=== PATIENT | female | born 1930 | race Caucasian/White ===

== ENCOUNTER 2017-09-05 14:06 | Inpatient (IN) | payer MEDICARE, OTHER ==
[~2017-09-05] VITALS: Ht 160 cm; Wt 60.0 kg
[~2017-09-05 14:06] MED LIST: ADVAIR 100-501 EACH INH; ALIGN4 MG PO; ALLOPURINOL100 MG PO; AMBIEN5 MG PO; AMLODIPINE BESY10 MG PO; AMLODIPINE BESYL5 MG PO; ANTI-DIARRHEA2 MG PO; ASPIRIN81 MG; ATORVASTATIN CA10 MG PO; ATORVASTATIN CA20 MG PO; COLESTIPOL HCL1 G1 PO; COLESTIPOL HCL1 GM PO; CYMBALTA30 MG PO; D3 DOTS2000 UNIT PO; DICYCLOMINE HCL10 MG PO; DIOVAN160 MG PO; DOCUSATE SODIU100 M1 PO; FEXOFENADINE H180 MG PO; FUROSEMIDE40 MG PO; HYDRALAZINE HCL50 MG PO; IPRATROPIUM BRO15 ML INH; IRON159 MG PO; LIPITOR20 MG; LISINOPRIL10 MG PO; LISINOPRIL40 MG PO; LYRICA25 MG PO; METOLAZONE2.5 MG PO; METOPROLOL TART50 MG PO; PHENYTOIN100 MG/4 M PO; SODIUM BICARBONATE PO; TAMSULOSIN HCL0.4 MG PO; TRIAMCINOLONE A15 G3 TOP; ULTRAM50 MG PO; VOLTAREN100 GM TOP; ZYRTEC10 MG PO
--- OUTSIDE RECORDS SUMMARY | 2017-09-05 14:10 | XMS REPORT ---
[facility] Address Unknown Phone Unavailable Care Team Providers Care Occupational Health Nurse Manager Name Role Phone OMID SINHA Unavailable Unavailable Problems This patient has no known problems. Allergies, Adverse Reactions, Alerts This patient has no known allergies or adverse reactions. Medications This patient has no known medications. Results Test Description Test Time Test Comments Text Results Atomic Results Result Comments BONE DXA DUAL ENERGY [place] [address] Patient Name: DEMAR CUEVAS MR #: [id number] : 1930 Age/Sex: 86/F Req #: [id number] [facility] Physician: Ordered by: OMID SINHA MD Report #: [id number] [facility]: Procedure: [id number] DX/BONE DXA DUAL ENERGY Exam Date: Exam Time: REPORT STATUS: Signed EXAM: DXA BONE DENSITY INDICATIONS: Disorder of bone unspecified COMPARISON: None. FINDINGS: Left femoral neck bone mineral density (BMD) (g/cm2): 0.610 Femur T- score (standard deviation relative to young adult mean BMD): -2.2 Femur Z -score (standard deviation relative to age-matched control group): 0.4 Lumbar bone mineral density (BMD) (g/cm2): 1.454 Lumbar T-score ( standard deviation relative to young adult mean BMD): 3.7 Lumbar Z-score (standard deviation relative to age-matched control group): 6.6 CONCLUSION: 1. WHO bone mineral classification: Low bone mass (osteopenia). 2. Major ten-year osteoporotic fracture risk is 22%, with a hip fracture risk is 6.8%. World Health Organization Classification: *The Z- score is provided for informational purposes. The T-score is preferable for clinical decisions. SUGGESTED RECOMMENDATIONS: Normal T Osteopenia: Calcium supplementation, daily multiple vitamins, and adequate exercise as preventive measures against osteoporosis. Osteoporosis T Severe Osteoporosis: In addition to the above, pharmacologic therapy. Dictated by: Lizz De La Cruz M.D. on 02/01/2017 at 8:06 Electronically approved by: Lizz De La Cruz M.D. on 02/01/2017 at 8:06 Dictated By: LIZZ DE LA CRUZ MD 5 Transcribed By: ALEXIA on 02/01/17 08 COPY TO: OMID SINHA MD MAMMOGRAPHY DIGITAL SCR BILAT [place] [address] Patient Name: DEMAR CUEVAS MR #: [id number] : 1930 Age/Sex: 86/F Req #: [id number] [facility] Physician: Ordered by: OMID SINHA MD Report #: [id number] Location: MAMMO Room/Bed: Procedure: [id number] MG/MAMMOGRAPHY DIGITAL SCR BILAT Exam Date: 01/31/17 Exam Time: 1450 REPORT STATUS: Signed # [id number] - [id number] #BILATERAL DIGITAL SCREENING MAMMOGRAM WITH CAD: 01/31 CLINICAL: Routine screening. Comparison is made to exam dated: mammogram - [facility]. Current study contains 4 films. The tissue of both breasts is predominantly fatty. Current study was also evaluated with a Computer Aided Detection (CAD) system. There are benign vascular calcifications and calcifications in both breasts. No significant masses, calcifications, or other findings are seen in either breast. There has been no significant interval change. IMPRESSION: BENIGN There is no mammographic evidence of malignancy. A 1 year screening mammogram is recommended. The patient will be notified by letter of the results. Sheeba mckeon/blossom:02/11/2017 10:58: 06 Tennis [employer] Manager: María LOMELI(R)(M), [facility] letter sent: Compared to Prior B9 Mammogram BI-RADS: 2 Benign Dictated By: SHEEBA BROOKS DO 1058 Transcribed By: BLOSSOM on 02/11/17 1058 COPY TO: OMID SINHA MD
--- OUTSIDE RECORDS SUMMARY | 2017-09-05 14:10 | XMS REPORT | Clinical Summary ---
Author Author [facility] Address Unknown Phone Unavailable Care Team Providers Care Clinical Safety Specialist Name Role Phone PCP Unavailable Allergies Not on File Current Medications Not on file Active Problems Not on file Social History Tobacco Use Types Packs/Day Years Used Date Never Assessed Sex Assigned at Date Recorded Not on file Last Filed Vital Signs Not on file Plan of Treatment Health Maintenance Due Date Last Done Comments ZOSTER VACCINE 1992 PNEUMOCOCCAL 1997 POLYSACCHARIDE VACCINE AGE 65 AND OVER PNEUMOCOCCAL-13 1997 INFLUENZA VACCINE 01/11/2017 Results Not on fileafter 09/04/2016 Insurance Payer Benefit Subscriber ID Type Phone Address Plan / Group MEDICARE MEDICARE xxxxxxxxxx Medicare [place], [place] PART A AND B [facility] xxxxxxxxx HMO/PPO THCARE CHOICE/CHO ICE +
[2017-09-05] MEDS ORDERED: ACETAMINOPHEN 325 MG TAB PO STA (15:18)
[2017-09-05 16:09] LABS: BASOPHILS # (AUTO) 0.1 (0.0-0.1); BASOPHILS % 0.7 % (0.0-1.0); EOSINOPHILS # (AUTO) 0.1 (0.0-0.4); EOSINOPHILS % 0.9 % (0.0-6.0); HEMATOCRIT 26.8 % (34.2-44.1); HEMOGLOBIN 8.9 g/dL (12.0-16.0); LYMPHOCYTES # (AUTO) 1.4 (1.0-3.2); LYMPHOCYTES % 19.7 % (18.0-39.1); MEAN CORPUSCULAR HEMOGLOBIN 34.6 pg (28-32); MEAN CORPUSCULAR HGB CONC 33.2 g/dL (31-35); MEAN CORPUSCULAR VOLUME 104.3 fL (81-99); MONOCYTES # (AUTO) 0.7 (0.2-0.8); MONOCYTES % 9.3 % (4.4-11.3); NEUTROPHILS # (AUTO) 4.9 (2.1-6.9); NEUTROPHILS % 69.3 % (38.7-80.0); PLATELET COUNT 144 x10e3/uL (140-360); RED BLOOD COUNT 2.57 x10e6/uL (3.6-5.1); RED CELL DISTRIBUTION WIDTH 15.5 % (11.7-14.4)
[2017-09-05 16:19] LABS: ALBUMIN 3.5 g/dL (3.5-5.0); ANION GAP 19.8 mmol/L (8-16); CALCIUM 9.3 mg/dL (8.4-10.2); CREATININE, SERUM 8.82 mg/dL (0.57-1.11); POTASSIUM 4.8 mmol/L (3.5-5.1)
[2017-09-05 16:29] LABS: MAGNESIUM 2.1 MG/DL (1.3-2.1); PHOSPHORUS 4.6 MG/DL (2.3-4.7)
[2017-09-05 16:51] LABS: THYROID STIMULATING HORMONE 1.231 uIU/mL (0.350-4.940)
--- NOTE | 2017-09-05 17:04 | Diagnostic Imaging Report ---
PROCEDURE: Frontal and lateral views of the chest. COMPARISON: None. INDICATIONS: WEAKNESS, LETHARGIC FINDINGS: Lines/tubes: Left arm vascular stent. Multiple surgical clips in the left arm. Median sternotomy wires and mediastinal clips. Lungs: The lungs are well inflated. Bilateral peribronchial cuffing. On lateral x-ray there is a soft tissue mass in the hilar/mediastinum. On frontal view, there is a right hilar fullness. There is however a overlying linear artifact. Questionable focal airspace opacity at left lung base. Pleura: There is no pleural effusion or pneumothorax. Heart and mediastinum: The heart and the mediastinum are normal. Bones: No acute bony abnormality. IMPRESSION: 1. Questionable right hilar mass. Recommend CT with contrast. 2. Bilateral peribronchial cuffing. This can be seen viral etiology or reactive airway. 3. Questionable asymmetric focal airspace opacity in the left lung base best seen on frontal view appears worsened for pneumonia. Dictated by: Boyd Paula M.D. on 09/05/2017 at 17:03 Electronically approved by: Boyd Paula M.D. on 09/05/2017 at 17:03
[2017-09-05] MEDS ORDERED: SODIUM CHLORIDE 0.9% 500ML 500 ML IV ONE (18:15)
[2017-09-05 18:47] LABS: BILIRUBIN,URINE 1+ (NEGATIVE); CLARITY,URINE CLEAR (CLEAR); COLOR,URINE YELLOW (YELLOW); KETONES,URINE NEGATIVE (NEGATIVE); LEUKOCYTE ESTERASE ,URINE NEGATIVE (NEGATIVE); NITRITE,URINE NEGATIVE (NEGATIVE); URINE UROBILINOGEN 0.2 mg/dL (0.2 - 1)
[2017-09-05 18:48] LABS: PROTEIN,URINE DIPSTICK 2+ (NEGATIVE)
[2017-09-05] MEDS ORDERED: SODIUM CHLORIDE 0.9% 1000ML 1,000 ML IV SCH (18:51)
[2017-09-05] MEDS ORDERED: ONDANSETRON HCL INJ 2 MG/ML VIAL IV PRN (19:00)
[2017-09-05] MEDS ORDERED: IOPAMIDOL 370 MG/ML 200 ML INFUS..BTL INJ ONE (20:29)
[2017-09-05] MEDS ORDERED: SODIUM CHLORIDE 0.9% 50ML 50 ML ONE (20:29)
--- NOTE | 2017-09-05 20:36 | Diagnostic Imaging Report ---
EXAM: CT Chest WITH contrast 09/05/2017 6:14 PM INDICATION: Mediastinal mass on chest x-ray COMPARISON: Same-day chest radiograph TECHNIQUE: Chest was scanned utilizing a multidetector helical scanner from the lung apex through the level of the adrenal glands after the uneventful administration of IV contrast. Coronal and sagittal reformations were obtained. Routine protocol was performed. IV CONTRAST: 100 mL of Omnipaque 370 RADIATION DOSE: Total DLP: 476.58 mGy*cm Estimated effective dose: (DLP x 0.014 x size factor) mSv COMPLICATIONS: None FINDINGS: LINES/ TUBES: None. LUNGS AND AIRWAYS: There is a 3.1 x 3.6 cm right upper lobe opacity in the right pulmonary hilum (series 3, image 53) with surrounding groundglass opacity, suggesting pulmonary hemorrhage. This lesion partially encases the right ascending pulmonary vein and right middle lobe pulmonary artery. Subsegmental atelectasis in the lung bases. PLEURA: The pleural spaces are clear. HEART AND MEDIASTINUM:There are enlarged paratracheal, subcarinal, and right hilar lymph nodes. For example, an upper paratracheal lymph node (series 2, image 34) measures 1.3 cm. A subcarinal lymph node (image 52) measures 1.3 cm. The heart is moderately enlarged. No pericardial effusion. The main pulmonary artery is enlarged, measuring 3.3 cm in caliber. The visualized thyroid gland is normal. UPPER ABDOMEN: Limited evaluation of the upper abdomen. There are small hypodensities in the kidneys which are too small to characterize. There has been a cholecystectomy. Small hiatal hernia. BONES: Diffusely sclerotic appearance of the bones with scattered lucencies in thoracic spine. These are indeterminate SOFT TISSUES: Unremarkable. IMPRESSION: 1. 3.6 cm opacity in the right lung hilum with surrounding hemorrhage or edema. This could represent lung cancer or pneumonia. 2. Consider follow-up imaging after treatment to assess for resolution. Alternatively, lung biopsy could be pursued. 3. Mediastinal lymphadenopathy. 4. Diffusely sclerotic bones with multiple small lucent lesions. This is indeterminate. Consider bone scan for further evaluation. Signed by: Dr. Toribio Lau M.D. on 09/05/2017 8:32 PM
--- OUTSIDE RECORDS SUMMARY | 2017-09-05 23:47 | XMS REPORT | Clinical Summary ---
Author Author [facility] Address Unknown Phone Unavailable Care Team Providers Care Hot Box Spotter Name Role Phone PCP Unavailable Allergies Not [...] Medicare [place], [place] PART A AND B [facility] xxxxxxxxx HMO/PPO THCARE CHOICE/CHO ICE +
[2017-09-06] VITALS (9 sets, daily range): BP systolic 123–179; BP diastolic 45–77
[2017-09-06 07:22] LABS: BASOPHILS % 0.8 % (0.0-1.0); EOSINOPHILS # (AUTO) 0.1 (0.0-0.4); HEMATOCRIT 27.2 % (34.2-44.1); HEMOGLOBIN 8.7 g/dL (12.0-16.0); LYMPHOCYTES # (AUTO) 1.1 (1.0-3.2); LYMPHOCYTES % 21.9 % (18.0-39.1); MEAN CORPUSCULAR HEMOGLOBIN 34.1 pg (28-32); MEAN CORPUSCULAR VOLUME 106.7 fL (81-99); MONOCYTES # (AUTO) 0.6 (0.2-0.8); MONOCYTES % 11.9 % (4.4-11.3); NEUTROPHILS # (AUTO) 3.2 (2.1-6.9); NEUTROPHILS % 62.8 % (38.7-80.0); PLATELET COUNT 127 x10e3/uL (140-360); RED BLOOD COUNT 2.55 x10e6/uL (3.6-5.1); RED CELL DISTRIBUTION WIDTH 15.3 % (11.7-14.4)
[2017-09-06] MEDS ORDERED: GABAPENTIN300 MG PO (07:38)
[2017-09-06] MEDS ORDERED: QUESTRAN PACKET4 GM PO (07:38)
[2017-09-06] MEDS ORDERED: LORATADINE10 MG PO (07:38)
[2017-09-06 07:48] LABS: ALBUMIN 3.1 g/dL (3.5-5.0); ALBUMIN/GLOBULIN RATIO 1.1 (0.8-2.0); ALKALINE PHOSPHATASE 71 IU/L (40-150); ANION GAP 18.1 mmol/L (8-16); BLOOD UREA NITROGEN 77 mg/dL (7-26); BUN/CREATININE RATIO 8 (6-25); CARBON DIOXIDE 22 mmol/L (22-29); CHLORIDE 100 mmol/L (98-107); EST GLOMERULAR FILTRATION RATE 4 ML/MIN (60-); GLUCOSE 102 mg/dL (74-118); PHOSPHORUS 6.3 MG/DL (2.3-4.7); POTASSIUM 4.1 mmol/L (3.5-5.1); SODIUM 136 mmol/L (136-145)
[2017-09-06 07:49] LABS: ALANINE AMINOTRANSFERASE < 6 IU/L (0-55)
--- NOTE | 2017-09-06 11:04 | Consultation ---
DATE OF CONSULTATION: September 06, 2017 Ms. Enriqueta Valdivia is known to me. An 87-year-old female dialyzes at [facility] dialysis facility on Tuesday, and Tuesday schedule. Was found to have an abnormal chest x-ray with a right hilar mass. CT scan done which was highly suspicious for lung cancer. She is scheduled for dialysis today. Awake, alert and sitting up in no apparent distress. ALLERGIES: NO APPARENT DRUG ALLERGIES. SOCIAL HISTORY: Patient does not smoke or drink. PAST MEDICAL HISTORY: History of hypertension, history of anemia of chronic kidney disease, history of seizure disorder, history of hyperlipidemia, vitamin D deficiency, secondary hyperparathyroidism, anemia of chronic kidney disease. LABS: Show white count of 5, hemoglobin 8.7 with a potassium 4.1, creatinine 9.5, phosphorus 6.3. TSH 1.2. CURRENT MEDICATIONS: Please see MAR for details. Shows Tylenol p.r.n. ,normal saline at 75 mL an hour. I am going to stop that. Ondansetron p.r.n. and Tylenol p.r.n. PHYSICAL EXAMINATION GENERAL: Awake, alert and laying supine in no apparent distress. VITALS: Blood pressure of 123/67, pulse rate 64, afebrile, oxygen saturation 99% on nasal cannula at 2 L. HEAD AND NECK: Corneae clear. Oral mucosa dry. LUNGS: Right-sided rales. Left relatively clear. Occasional expiratory rhonchi. HEART: S1 and S2 audible. No rubs or gallops. ABDOMEN: Soft and nontender. LOWER EXTREMITIES: Shows no edema. LABORATORY TESTS: As mentioned. IMPRESSION: End-stage renal disease. PLAN: Hemodialysis. Strongly recommend oncology input given the suspicion of lung cancer. I will discuss with Dr. Medina. Blood pressure is stable. Volume status stable. Anemia of chronic kidney disease. Please see orders. Job#: [id number] RI
[2017-09-06] MEDS ORDERED: LORATADINE 10 MG TAB PO PRN (12:30)
[2017-09-06] MEDS ORDERED: TRIAMCINOLONE 0.1% OINTMENT 15 GM TUBE TOP PRN (12:30)
[2017-09-06] MEDS ORDERED: IPRATROPIUM BROMIDE 0.06% 42 MCG NASPR NS PRN (12:30)
[2017-09-06] MEDS ORDERED: SODIUM CHLORIDE 0.9% 1000ML 2,000 ML IV PRN (13:30)
[2017-09-06] MEDS: PIPERACILLIN/TAZO 2.25 GM 50 ML IV SCH ×2 (14:00→21:12)
--- NOTE | 2017-09-06 15:22 | Diagnostic Imaging Report ---
Exam: Head CT without contrast History: Syncope Comparison studies: Head CTs of 11/17/2016 and 10/08/2009. Brain MRI 07/08/2015. Technique: Axial images were obtained from the skull base to the vertex. Coronal and sagittal images reconstructed from the axial data. Intravenous contrast: None Findings: Scalp: No abnormalities. Bones: No fractures, blastic or lytic lesions. Brain sulci: Mildly prominent but age appropriate. Ventricles: Normal in size. No hydrocephalus. Extra-axial spaces: No masses, no fluid collection. Parenchyma: Unchanged incidental small cavernous malformation at the pontomedullary junction. No other mass, acute hemorrhage or acute cortical vascular insults. Ill-defined scattered and mildly confluent-periventricular hypodensities in the supratentorial white matter are nonspecific but most compatible with chronic small vessel ischemic changes. Sellar/suprasellar region: No abnormalities. Craniocervical junction: Patent foramen magnum. No Chiari one malformation. Incidental findings: Retained contrast within the vasculature from recent chest CT with IV contrast of 09/05/2017. Mild degenerative changes at the bilateral temporomandibular joints. Atherosclerotic calcifications in the carotid siphons and intradural vertebral arteries. IMPRESSION: 1. No acute intracranial abnormalities. 2. Retained contrast within the vasculature from recent chest CT with IV contrast on 09/05/2017. 3. No other changes from the previous head CT of 11/17/2016. 4. Mild to moderate chronic microvascular ischemic changes. 5. Unchanged small pontomedullary cavernous malformation. Signed by: Dr. Wale Uribe M.D. on 09/06/2017 3:18 PM
[2017-09-06] MEDS ORDERED: SODIUM BICARBONATE 650 MG PO SCH (17:00)
--- NOTE | 2017-09-06 17:24 | Consultation ---
DATE OF CONSULTATION: September 06, 2017 PULMONARY CONSULTATION This is a patient of Dr. Medina and Dr. Souza. This is a charming, but unfortunate, 85-year-old woman with a history of early dementia, history of seizure disorder, history of epilepsy, history of hypertension, end-stage renal disease on dialysis for approximately 2 years. She is somewhat forgetful. History is largely relayed by her daughter and family. She was weak and unable to walk. According to the daughter, she felt cold and has had shaking chills after dialysis. She has also recently been treated for bronchitis and cough. Born in [place], [place], and worked in an office. Nonsmoker. No alcohol use. She has had coronary bypass surgery, hysterectomy, gallbladder surgery, foot surgery, graft surgery. Family history is positive for bone cancer. PHYSICAL EXAMINATION GENERAL: Frail, white female looking her stated age, in no acute distress. VITALS: Temperature now 98. Temperature on admission 101.8. Blood pressure 142/71. CHEST: Auscultation revealed clear lung weaver. HEART: Regular rhythm. ABDOMEN: Nontender. EXTREMITIES: Not edematous. Recent AV graft. Possibility of lung cancer was discussed with adenopathy versus pneumonia. The patient is agreeable to continue antibiotic therapy. They will consider biopsy but likely wish to delay until follow up CAT scan in approximately 6 weeks' time. Will check CEA level. Will review the films with radiology. Thank you for this kind referral. Job#: [id number]
[2017-09-06] MEDS: DICYCLOMINE HCL 10 MG CAP PO SCH ×2 (18:02→21:12)
[2017-09-06] MEDS: GABAPENTIN 300 MG CAP PO SCH (18:02)
[2017-09-06] MEDS: DOXYCYCLINE HYCLATE TABLET 100 MG TAB PO SCH (18:02)
[2017-09-06] MEDS: CHOLESTYRAMINE 4 GM PACKET PO SCH (18:03)
[2017-09-06] MEDS: SODIUM BICARBONATE 650 MG TAB PO SCH (18:03)
--- NOTE | 2017-09-06 19:01 | History and Physical ---
HISTORY OF PRESENT ILLNESS: An 87-year-old female with past medical history positive for end-stage renal disease on dialysis, hypertension. Patient came here because apparently she had syncopal episode at home and the family found her on the floor, very confused. Patient was admitted to the hospital. She was found to have a mass on the right lung which is either a tumor or pneumonia. She has been started empirically on IV antibiotic here. BUN and creatinine looked worse when she came here. REVIEW OF SYSTEMS: CARDIOVASCULAR: No chest pain, no palpitation. RESPIRATORY: No shortness of breath. She does complain of some cough with yellowish sputum. GASTROINTESTINAL: No nausea, no vomiting, no diarrhea. GENITOURINARY: No frequency, no dysuria. SOCIAL HISTORY: She does not smoke. She does not drink. PAST MEDICAL HISTORY: Positive for end-stage renal disease on dialysis and hypertension. PHYSICAL EXAMINATION: VITAL SIGNS: Blood pressure 123/67, temperature 97.1, heart rate 64 per minute, respiratory rate is 18 per minute. Oxygen saturation 99%. LAB: On the BMP: Sodium 136, potassium 4.1, chloride 100, CO2 22, BUN 77, creatinine 9.50. Glucose 102. On the CBC: White blood count 5.03, hemoglobin 8.7, hematocrit 27.2, platelet count 127,000. AST 13, ALT 6, total bilirubin 0.7, alkaline phosphatase 71. The CT of the chest showed a mass on the right hilar lung area and also some spots on the bones. FINAL IMPRESSION: 1. Syncopal episode. 2. Lobar pneumonia versus lung mass. 3. End-stage disease on dialysis. 4. Chronic anemia secondary to end-stage renal disease. 5. Hypertensive nephropathy. 6. Encephalopathy which seems to be metabolic, which is completely resolved. PLAN OF TREATMENT: We are going to continue Zosyn 2.25 grams IV piggyback q.6 hours. Resume the rest of the home medications. We are going to get a pulmonary consult with Dr. Nielsen and also an oncology consult with Dr. Whitmore, Dr. Souza, fish checker who is seeing her from the nephrology point of view since the patient also is on dialysis on Tuesdays, and Saturdays. We are going to also order a CT of the head. Physical therapy has been ordered. We are going to do a BMP tomorrow. Job#: [id number] EV
[2017-09-06] MEDS: SALMETEROL/FLUTICASONE 100/50 INH SCH (19:55)
[2017-09-07] VITALS (7 sets, daily range): BP systolic 124–159; BP diastolic 62–78
[2017-09-07] MEDS: PIPERACILLIN/TAZO 2.25 GM 50 ML IV SCH ×3 (05:57→21:02)
[2017-09-07 07:41] LABS: ANION GAP 14.7 mmol/L (8-16); CALCIUM 8.6 mg/dL (8.4-10.2); CREATININE, SERUM 5.74 mg/dL (0.57-1.11); POTASSIUM 3.7 mmol/L (3.5-5.1)
[2017-09-07] MEDS: SALMETEROL/FLUTICASONE 100/50 INH SCH ×2 (09:00→19:05)
[2017-09-07] MEDS: CHOLESTYRAMINE 4 GM PACKET PO SCH ×2 (09:44→16:43)
[2017-09-07] MEDS: ASPIRIN 81 MG CHEW TAB PO SCH (09:44)
[2017-09-07] MEDS: COLESTIPOL HCL 1 G TAB PO SCH (09:44)
[2017-09-07] MEDS: DOXYCYCLINE HYCLATE TABLET 100 MG TAB PO SCH (09:44)
[2017-09-07] MEDS: DICYCLOMINE HCL 10 MG CAP PO SCH ×3 (09:44→21:02)
[2017-09-07] MEDS: AMLODIPINE BESYLATE 10 MG TAB PO SCH (09:44)
[2017-09-07] MEDS: SODIUM BICARBONATE 650 MG TAB PO SCH ×2 (09:44→16:43)
[2017-09-07] MEDS: GABAPENTIN 300 MG CAP PO SCH ×2 (09:44→16:43)
[2017-09-07] MEDS: ALLOPURINOL 100 MG TAB PO SCH (09:45)
[2017-09-07 12:18] LABS: FERRITIN 1997.95 ng/mL (4.63-204.00)
--- NOTE | 2017-09-07 19:27 | Diagnostic Imaging Report ---
Bone Scan, delayed phase INDICATION: 87 F with ESRD has a 3.6 cm right lung opacity, mediastinal adenopathy and diffusely sclerotic bones with multiple small lucent lesions on CT scan 09/05/2017. No current or historical diagnosis of cancer. COMPARISON: Chest CT 09/05/2017 REPORT: Approximately 3 hours following intravenous administration of 27.2 mCi of Tc-99m MDP,4-hour delayed total body images in the anterior and posterior projections and selected spot images were obtained. Scoliosis in the lumbar spine is noted. Diffusely increased tracer is seen in the mid thoracic spine without discrete focal abnormality, consistent with degenerative change. Small focus of mildly increased tracer is seen in the right side of L3, also consistent with degenerative changes. Otherwise, distribution of tracer activity is unremarkable throughout the skeletal system. No abnormal accumulation of tracer is seen in the soft tissues or urinary tract. The kidneys are barely visible and are small consistent with patient's known ESRD. IMPRESSION: No scan evidence of metabolic or metastatic bone disease. Signed by: Dr. María Cuevas M.D. on 09/07/2017 7:23 PM
[2017-09-08] VITALS (8 sets, daily range): BP systolic 107–159; BP diastolic 50–67
[2017-09-08] MEDS: PIPERACILLIN/TAZO 2.25 GM 50 ML IV SCH ×3 (05:43→22:16)
[2017-09-08] MEDS: ACETAMINOPHEN 325 MG TAB PO PRN ×2 (05:59→10:10)
[2017-09-08] MEDS: SALMETEROL/FLUTICASONE 100/50 INH SCH ×2 (08:36→20:35)
[2017-09-08] MEDS: CHOLESTYRAMINE 4 GM PACKET PO SCH ×2 (08:49→16:17)
[2017-09-08] MEDS: DICYCLOMINE HCL 10 MG CAP PO SCH ×3 (08:49→22:16)
[2017-09-08] MEDS: DOXYCYCLINE HYCLATE TABLET 100 MG TAB PO SCH (08:49)
[2017-09-08] MEDS: ALLOPURINOL 100 MG TAB PO SCH (08:49)
[2017-09-08] MEDS: GABAPENTIN 300 MG CAP PO SCH ×2 (08:49→16:17)
[2017-09-08] MEDS: COLESTIPOL HCL 1 G TAB PO SCH (08:49)
[2017-09-08] MEDS: SODIUM BICARBONATE 650 MG TAB PO SCH ×2 (08:49→16:17)
[2017-09-08] MEDS ORDERED: SODIUM CHLORIDE 0.9% 1000ML 2,000 ML IV PRN (10:00)
--- NOTE | 2017-09-08 15:09 | Consultation ---
DATE OF CONSULTATION: September 06, 2017, at 12:40 p.m. NEUROLOGICAL CONSULTATION REASON FOR CONSULTATION: Syncopal spell. This is an 87-year-old female with multiple medical problems including end-stage renal failure on dialysis, hypertension, history of seizure, anemia, hyperlipidemia, and vitamin D deficiency. Yesterday, as per dialysis, she was found on the floor awake but no recollection of events. During the dialysis, there was 1 episode of generalized jerking, questionable seizure. The patient had one in 2016. She had 1 episode of generalized grand mal seizure. She was put on Dilantin but apparently is not taking the medication any more for her seizure. MEDICATIONS: Have been reviewed in detail. REVIEW OF SYSTEMS: She is resting comfortably in no acute distress. PHYSICAL EXAMINATION VITAL SIGNS: Blood pressure 152/70, pulse 61, temperature 98. LUNGS: Clear to auscultation. HEART: Regular sinus rhythm. No murmur. ABDOMEN: Soft and nontender. No organomegaly. MUSCULOSKELETAL: Lower extremities have no edema, no cyanosis, no clubbing. NEUROLOGIC EXAMINATION: She is alert and cooperative. Speech is clear. No dysarthria or dysphagia. Pupils are equal and reactive. The extraocular movements are full. Visual weaver were normal. No facial weakness. Tongue protrudes in the midline. Palatal movement is normal. Extremities: No evidence of weakness in either the upper or lower extremities including proximal and distal muscles. Deep tendon reflexes: Knee jerks and ankle jerks are absent bilaterally. Triceps, biceps and radials are 1+ bilaterally. Plantar stimulation is down bilaterally. HEAD: Normocephalic. NECK: Supple. Carotid pulsations are present bilaterally. There are no bruits. LABORATORY WORKUP: CBC: White count 5300, hemoglobin 8.7, hematocrit 27.2, platelets 127,000. Chemistry: Sodium 136, potassium 4.1, BUN 77, creatinine 0.950, estimated GFR 4, calcium 9. Liver enzymes are normal. TSH is 1231. Stool for occult blood is positive. IMAGING: CT scan of the head shows no acute pathology. Chronic small vessel disease. IMPRESSION 1. Syncopal spell, unspecified. 2. Rule out positional dizziness. 3. Possible lung mass in the right lung by CT scan. 4. End-stage renal failure. Follow closely with Dr. Medina, and we will discuss the case. Job#: [id number] MH
[2017-09-08] MEDS: AMLODIPINE BESYLATE 10 MG TAB PO SCH (16:17)
[2017-09-08] MEDS: METOPROLOL SUCCINATE 50 MG TAB XL PO SCH (16:17)
[2017-09-08] MEDS: ASPIRIN 81 MG CHEW TAB PO SCH (16:17)
--- NOTE | 2017-09-08 18:33 | Progress Note ---
DATE: September 08, 2017 INTERNAL MEDICINE PROGRESS NOTE SUBJECTIVE: This 87-year-old female came here with change in mental status. She was found to have pneumonia versus a mass in the chest. The patient is responding well to the IV antibiotics. PHYSICAL EXAM: VITAL SIGNS: Blood pressure 145/63. Temperature 98.1, heart rate is 72 per minute. Respiratory rate is 18 per minute. Oxygen saturation 100%. HEART: Regular rhythm. No murmurs and no extra sounds. LUNGS: Clear bilaterally. ABDOMEN: Soft. EXTREMITIES: Show no evidence of cyanosis, edema or trauma. BLOOD WORK: We have BMP with a sodium 141, potassium 3.7, chloride 102, CO2 28, BUN 37, creatinine 5.74. Glucose 110. On the CBC, we have a white blood count 5.03, hemoglobin 8.7, hematocrit 27.2, platelet count 127,000. AST 15, ALT 6. Total bilirubin 0.7, alkaline phosphatase 66. FINAL IMPRESSION: 1. Right lung pneumonia versus mass. 2. End-stage renal disease on dialysis. 3. Anemia of chronic disease secondary to end-stage renal disease. 4. Neuropathy. PLAN OF TREATMENT: Continue Zosyn 2.25 grams IV piggyback q. 8 hours. Continue with the rest of the medications, which include allopurinol 100 mg daily, Colestipol 2 mg daily for diarrhea, Claritin 10 mg daily as needed, doxycycline 100 mg daily, amlodipine 10 mg daily, Bentyl 10 mg 3 times a day, continue with Advair one inhalation twice a day, metoprolol 50 mg daily, aspirin 81 mg daily, gabapentin 300 mg twice a day, triamcinolone cream 0.001% twice a day, Tylenol 350 mg q.4 h. as needed, Questran 4 grams twice a day, albuterol twice a day, sodium bicarbonate 350 mg twice a day. Continue physical and occupational therapy. Job#: [id number]
[2017-09-09] VITALS (8 sets, daily range): BP systolic 115–181; BP diastolic 53–67
[2017-09-09] MEDS: ACETAMINOPHEN 325 MG TAB PO PRN ×2 (00:24→20:25)
[2017-09-09] MEDS: PIPERACILLIN/TAZO 2.25 GM 50 ML IV SCH ×3 (05:18→22:53)
[2017-09-09] MEDS: SALMETEROL/FLUTICASONE 100/50 INH SCH ×2 (07:47→17:00)
[2017-09-09] MEDS: DICYCLOMINE HCL 10 MG CAP PO SCH ×3 (09:00→20:30)
[2017-09-09] MEDS: COLESTIPOL HCL 1 G TAB PO SCH (09:00)
[2017-09-09] MEDS: SODIUM BICARBONATE 650 MG TAB PO SCH ×2 (09:00→17:00)
[2017-09-09] MEDS: CHOLESTYRAMINE 4 GM PACKET PO SCH ×3 (09:00→20:30)
[2017-09-09] MEDS: ALLOPURINOL 100 MG TAB PO SCH (09:00)
[2017-09-09] MEDS: AMLODIPINE BESYLATE 10 MG TAB PO SCH (09:00)
[2017-09-09] MEDS: GABAPENTIN 300 MG CAP PO SCH ×2 (09:00→17:00)
[2017-09-09] MEDS: METOPROLOL SUCCINATE 50 MG TAB XL PO SCH (09:00)
[2017-09-09] MEDS: DOXYCYCLINE HYCLATE TABLET 100 MG TAB PO SCH (09:00)
[2017-09-09] MEDS: ASPIRIN 81 MG CHEW TAB PO SCH (09:00)
[2017-09-09] MEDS: LOPERAMIDE HCL 2 MG CAP PO PRN (15:00)
--- NOTE | 2017-09-09 16:06 | Progress Note ---
DATE: September 09, 2017 INTERNAL MEDICINE PROGRESS NOTE CHIEF COMPLAINT: Excessive diarrhea. SUBJECTIVE: She does have a history of diarrhea, but now apparently worse than usual. Going to increase the amount of Questran that she is taking and also stool for C. difficile has been sent. PHYSICAL EXAM: VITAL SIGNS: Blood pressure 148/67. Temperature 98.3, heart rate 58 per minute. Respiratory rate 20 per minute. Oxygen saturation 98%. HEART: Regular rhythm. No murmur. No extra sounds. LUNGS: Clear bilaterally. ABDOMEN: Soft. EXTREMITIES: Show no evidence of cyanosis, edema or trauma. BMP showed sodium 141, potassium 3.7, chloride 102, CO2 28, BUN 37 creatinine 5.74. Glucose 110. On the CBC white blood count 5.03, hemoglobin 8.7, hematocrit 27.2, platelet count 195,000. AST 15, ALT 6, total bilirubin 0.7, alkaline phosphatase 66. FINAL IMPRESSION: 1. Questionable pneumonia. 2. Ileal mass. 3. Hypertension with hypertensive nephropathy. 4. End-stage renal disease on dialysis. 5. History of chronic diarrhea. PLAN OF TREATMENT: Going to continue Zosyn 2.25 grams IV piggyback q.8 hours. Continue on Zofran 4 mg IV q.4 h. as needed, allopurinol 100 mg daily. Questran going to increase to 4 grams 3 times a day. Continue Claritin 10 mg daily. Doxycycline 100 mg daily. Amlodipine 10 mg daily. Bentyl 10 mg 3 times a day. Advair one inhalation twice a day. Metoprolol 50 mg daily. Aspirin 81 mg daily. Gabapentin 300 mg twice a day. Triamcinolone cream 0.001% twice a day. Tylenol 350 mg q.4 h. as needed. Albuterol twice a day. Sodium bicarbonate 350 mg twice a day. Stool for C. difficile has been sent. Continue dialysis. Continue renal diet. If okay with Dr. Álvarez, the CT findings most likely a malignant mass, but because it is at least a stage 3, the prognosis is extremely poor even with treatment so we are going to talk with the family and probably leave it alone without any workup, as per hematology/oncology recommendations by Dr. Álvarez. Job#: [id number]
[2017-09-10] VITALS (8 sets, daily range): BP systolic 116–186; BP diastolic 42–74
[2017-09-10] MEDS: PIPERACILLIN/TAZO 2.25 GM 50 ML IV SCH ×3 (06:03→22:30)
[2017-09-10] MEDS: SALMETEROL/FLUTICASONE 100/50 INH SCH ×2 (07:20→19:32)
[2017-09-10] MEDS: ACETAMINOPHEN 325 MG TAB PO PRN ×3 (08:15→18:05)
[2017-09-10 09:06] LABS: ALBUMIN/GLOBULIN RATIO 0.9 (0.8-2.0); ANION GAP 18.9 mmol/L (8-16); CREATININE, SERUM 6.99 mg/dL (0.57-1.11); POTASSIUM 3.9 mmol/L (3.5-5.1)
[2017-09-10] MEDS: GABAPENTIN 300 MG CAP PO SCH ×2 (09:31→17:00)
[2017-09-10] MEDS: METOPROLOL SUCCINATE 50 MG TAB XL PO SCH (09:31)
[2017-09-10] MEDS: AMLODIPINE BESYLATE 10 MG TAB PO SCH (09:31)
[2017-09-10] MEDS: DICYCLOMINE HCL 10 MG CAP PO SCH ×3 (09:31→21:30)
[2017-09-10] MEDS: CHOLESTYRAMINE 4 GM PACKET PO SCH ×3 (09:31→21:30)
[2017-09-10] MEDS: SODIUM BICARBONATE 650 MG TAB PO SCH ×2 (09:31→17:00)
[2017-09-10] MEDS: ALLOPURINOL 100 MG TAB PO SCH (09:31)
[2017-09-10] MEDS: DOXYCYCLINE HYCLATE TABLET 100 MG TAB PO SCH (09:31)
[2017-09-10] MEDS: COLESTIPOL HCL 1 G TAB PO SCH (09:31)
[2017-09-10] MEDS: ASPIRIN 81 MG CHEW TAB PO SCH (09:31)
[2017-09-10] MEDS ORDERED: EPOETIN ALFA 10000 UNIT/ML VIAL SC SCH (11:00)
[2017-09-10 12:18] LABS: BASOPHILS % 0.4 % (0.0-1.0); EOSINOPHILS # (AUTO) 0.1 (0.0-0.4); HEMATOCRIT 23.1 % (34.2-44.1); LYMPHOCYTES # (AUTO) 0.9 (1.0-3.2); LYMPHOCYTES % 8.2 % (18.0-39.1); MEAN CORPUSCULAR HEMOGLOBIN 34.6 pg (28-32); MEAN CORPUSCULAR HGB CONC 32.5 g/dL (31-35); MEAN CORPUSCULAR VOLUME 106.5 fL (81-99); MONOCYTES # (AUTO) 0.6 (0.2-0.8); MONOCYTES % 5.8 % (4.4-11.3); NEUTROPHILS # (AUTO) 8.7 (2.1-6.9); NEUTROPHILS % 83.9 % (38.7-80.0); PLATELET COUNT 147 x10e3/uL (140-360); RED BLOOD COUNT 2.17 x10e6/uL (3.6-5.1); RED CELL DISTRIBUTION WIDTH 14.9 % (11.7-14.4)
[2017-09-10 12:24] LABS: HEMOGLOBIN 7.5 g/dL (12.0-16.0)
[2017-09-10] MEDS ORDERED: VANCOMYCIN 1GM/NS 250 ML 250 ML IV ONE (15:30)
[2017-09-10] MEDS ORDERED: DIATRIZOATE MEGL/DIATRIZOA SOD 30 ML BTL PO ONE (17:16)
--- NOTE | 2017-09-10 19:06 | Diagnostic Imaging Report ---
EXAM: CT Abdomen and Pelvis WITHOUT contrast INDICATION: \S\R/O MASS \S\Y COMPARISON: Chest CT 09/05/2017. TECHNIQUE: Abdomen and pelvis were scanned utilizing a multidetector helical scanner from the lung base to the pubic symphysis without administration of IV contrast. Absence of intravenous contrast decreases sensitivity for detection of focal lesions and vascular pathology. Coronal and sagittal reformations were obtained. Routine protocol was performed. IV CONTRAST: None ORAL CONTRAST: Gastroview. COMPLICATIONS: None RADIATION DOSE: Total DLP: 478.8 mGy*cm Estimated effective dose: (DLP x 0.015 x size factor) mSv CTDIvol has been reviewed. It is below the limits set by the Radiation Protocol Committee (RPC). FINDINGS: LINES and TUBES: None. LOWER THORAX: Trace bilateral pleural effusions. Hypoattenuation of the blood pool relative to the myocardium is suggestive of anemia. HEPATOBILIARY: No focal hepatic lesions. No biliary ductal dilation. GALLBLADDER: Cholecystectomy. SPLEEN: No splenomegaly. PANCREAS: Atrophic. No focal masses or ductal dilatation. ADRENALS: No adrenal nodules KIDNEYS/URETERS: No hydronephrosis. Right superior pole 0.7 cm lesion (series 2 image 31) is indeterminate. No stones. GI TRACT: Small hiatal hernia. No abnormal distention, wall thickening, or evidence of bowel obstruction. Sigmoid colonic diverticula without evidence of diverticulitis. PELVIC ORGANS/BLADDER: Hyperattenuating fluid in the bladder is likely related to delayed excretion of contrast from chest CT with contrast 09/05/2017. Hysterectomy. No adnexal masses. LYMPH NODES: No lymphadenopathy. VESSELS: There is mild atherosclerotic disease in the aorta and major arterial branches. PERITONEUM / RETROPERITONEUM: No free air or fluid. BONES: Diffusely sclerotic appearance of the bones with scattered lucencies. Grade 1 anterolisthesis of L3 on L4 without spondylolysis. SOFT TISSUES: Unremarkable. IMPRESSION: 1. Right superior pole subcentimeter lesion is indeterminate and may represent a hyperdense cyst or solid mass. Given low GFR, recommend renal ultrasound for further evaluation. 2. Otherwise, no evidence of mass within the limitations of unenhanced CT. 3. Diffusely sclerotic appearance of the bones with intermixed lucencies. This could reflect renal osteodystrophy given the lack of scan evidence of metastatic disease on bone scan 09/07/2017. Attention on follow up exam. Signed by: DR. Aayush Brantley MD on 09/10/2017 7:03 PM
--- NOTE | 2017-09-10 20:25 | Consultation ---
DATE OF CONSULTATION: September 10, 2017 REASON FOR CONSULTATION: Fever. Thank you so much for asking me see this patient. 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 Patient is forgetful. The patient, according to her daughter, when she left her dialysis unit, she was having fever and chills. She was brought here, where she was admitted because of fever and chills. Patient, in general, not feeling well, weak. Infectious disease was consulted today. The patient has been here since September 05. Infectious disease was consulted today. PAST MEDICAL HISTORY: Otherwise, as mentioned above, hypertension, anemia, seizure disorder, hyperlipidemia, vitamin D secondary hyperparathyroidism, chronic kidney disease. PAST SURGICAL HISTORY: She has AV graft on the right upper extremity. ALLERGIES: NKA. SOCIAL HISTORY: There is no smoking, drug abuse, alcohol abuse. FAMILY HISTORY: Otherwise unremarkable. REVIEW OF SYSTEMS GENERAL: She is generally just very weak. HEENT: There is no headache, visual changes, hearing changes. GI: No nausea, no vomiting, no diarrhea. CARDIAC: No arrhythmia. LABORATORY DATA: Reviewed. Blood cultures are negative. White count 10.36, hemoglobin 7.5, her platelet of 147,000. PHYSICAL EXAMINATION GENERAL: She is alert, oriented. VITALS: Stable, afebrile. HEENT: She is not icteric. NECK: Supple. CHEST: Clear. COR: No murmur. ABDOMEN: Soft. Positive bowel sounds. EXTREMITIES: No edema. The CAT scan showed there is a mass in the lung. IMPRESSION: Fever. I do not o think she has infection. I am afraid she may have malignancy and his fever is related to it. I will recommend to obtain computed tomography of abdomen and pelvis. Blood cultures are negative. Her computed tomography does not show pneumonia. Will discuss with the family and the attending and Dr. Whitmore. Will follow. Job#: [id number] CQ
[2017-09-11] VITALS (8 sets, daily range): BP systolic 120–147; BP diastolic 54–87
[2017-09-11] MEDS: PIPERACILLIN/TAZO 2.25 GM 50 ML IV SCH ×2 (06:06→14:00)
[2017-09-11] MEDS: SALMETEROL/FLUTICASONE 100/50 INH SCH ×2 (08:20→19:51)
[2017-09-11 08:23] LABS: BASOPHILS % 0.6 % (0.0-1.0); EOSINOPHILS # (AUTO) 0.1 (0.0-0.4); EOSINOPHILS % 1.3 % (0.0-6.0); LYMPHOCYTES # (AUTO) 0.9 (1.0-3.2); LYMPHOCYTES % 12.5 % (18.0-39.1); MEAN CORPUSCULAR HEMOGLOBIN 33.6 pg (28-32); MEAN CORPUSCULAR HGB CONC 31.4 g/dL (31-35); MEAN CORPUSCULAR VOLUME 107.1 fL (81-99); MONOCYTES # (AUTO) 0.5 (0.2-0.8); MONOCYTES % 7.4 % (4.4-11.3); NEUTROPHILS # (AUTO) 5.6 (2.1-6.9); NEUTROPHILS % 77.8 % (38.7-80.0); PLATELET COUNT 142 x10e3/uL (140-360); RED BLOOD COUNT 2.11 x10e6/uL (3.6-5.1); RED CELL DISTRIBUTION WIDTH 14.7 % (11.7-14.4)
[2017-09-11] MEDS: CHOLESTYRAMINE 4 GM PACKET PO SCH ×3 (08:30→21:45)
[2017-09-11 08:33] LABS: HEMOGLOBIN 7.1 g/dL (12.0-16.0)
[2017-09-11 08:34] LABS: HEMATOCRIT 22.6 % (34.2-44.1)
[2017-09-11] MEDS: ACETAMINOPHEN 325 MG TAB PO PRN (08:35)
[2017-09-11] MEDS: LOPERAMIDE HCL 2 MG CAP PO PRN ×4 (08:35→17:45)
[2017-09-11] MEDS: METOPROLOL SUCCINATE 50 MG TAB XL PO SCH (09:00)
[2017-09-11] MEDS: DICYCLOMINE HCL 10 MG CAP PO SCH ×3 (09:00→21:45)
[2017-09-11] MEDS: ASPIRIN 81 MG CHEW TAB PO SCH (09:00)
[2017-09-11] MEDS: AMLODIPINE BESYLATE 10 MG TAB PO SCH (09:00)
[2017-09-11] MEDS: GABAPENTIN 300 MG CAP PO SCH ×2 (09:00→17:00)
[2017-09-11] MEDS: DOXYCYCLINE HYCLATE TABLET 100 MG TAB PO SCH (09:00)
[2017-09-11] MEDS: COLESTIPOL HCL 1 G TAB PO SCH (09:00)
[2017-09-11] MEDS: SODIUM BICARBONATE 650 MG TAB PO SCH ×2 (09:00→17:00)
[2017-09-11] MEDS: ALLOPURINOL 100 MG TAB PO SCH (09:00)
[2017-09-11] MEDS ORDERED: ACETAMINOPHEN 325 MG TAB PO STA (14:45)
[2017-09-11] MEDS ORDERED: DIPHENHYDRAMINE HCL INJ 50 MG/ML VIAL IV ONE (14:45)
[2017-09-11] MEDS ORDERED: SODIUM CHLORIDE 0.9% 250ML 250 ML IV ONE (15:30)
[2017-09-12] VITALS (7 sets, daily range): BP systolic 128–158; BP diastolic 60–68
[2017-09-12] MEDS: METRONIDAZOLE 500MG/NS 100ML 100 ML IV SCH ×5 (00:22→23:04)
[2017-09-12] MEDS: ACETAMINOPHEN 325 MG TAB PO PRN (00:37)
--- NOTE | 2017-09-12 02:05 | Progress Note ---
DATE: September 11, 2017 Ms. Valdivia is doing well today. There are no new complaints. She is complaining of diarrhea. PHYSICAL EXAMINATION: GENERAL: She is alert and oriented, does not seem to be in acute distress. VITAL SIGNS: Stable, afebrile. HEENT: She does not appear icteric. NECK: Supple. CHEST: Clear. COR: S1 and S2. No murmur. ABDOMEN: Soft. IMPRESSION: Fever, concern about malignancy. She had mass in the lung, which could probably be cancerous. She does have right superior pole lesion. Will get a renal ultrasound. Fever probably due to her malignancy. Doubt she has infection. Will change her antibiotic to cefepime and Flagyl. Will follow. ANJUM ROBLEDO MD Job#: [id number]
[2017-09-12] MEDS: SALMETEROL/FLUTICASONE 100/50 INH SCH ×2 (07:57→22:15)
[2017-09-12] MEDS: SODIUM BICARBONATE 650 MG TAB PO SCH ×2 (09:00→16:33)
[2017-09-12] MEDS: DICYCLOMINE HCL 10 MG CAP PO SCH ×3 (09:00→21:14)
[2017-09-12] MEDS: GABAPENTIN 300 MG CAP PO SCH ×2 (09:00→16:33)
[2017-09-12] MEDS: CHOLESTYRAMINE 4 GM PACKET PO SCH ×3 (09:00→21:14)
[2017-09-12] MEDS: CEFEPIME HCL 1 GM VIAL IV SCH (11:00)
[2017-09-12] MEDS ORDERED: ACETAMINOPHEN 1000 MG/100 ML IV STA (11:01)
[2017-09-12] MEDS ORDERED: SODIUM CHLORIDE 0.9% 500ML 0 ML ONE (11:56)
--- NOTE | 2017-09-12 14:19 | Operative Report ---
DATE OF PROCEDURE: September 12, 2017 REFERRING PHYSICIAN: Dr. Omid Sinha. PROCEDURE PERFORMED: Esophagogastroduodenoscopy with biopsy. INDICATIONS FOR PROCEDURE: Anemia, guaiac positive stools. MEDICATION: Patient was done under MAC. Please see anesthesiologist's note. PROCEDURE: With patient in the left lateral decubitus position, the flexible fiberoptic Olympus gastroscope was introduced into the esophagus under direct visualization without any difficulty. There was some patchy erythema noted in the distal esophagus. The scope was then advanced with ease into the stomach, traversing a small sliding hiatal hernia. Mucosa overlying the antrum and the body revealed some diffuse erythema and mild to moderate edema, and biopsies were obtained and sent to stain for H. pylori. There was an ulcerated nodule noted in the antrum, and that was biopsied. There were some polyps noted in the body that were hyperplastic-appearing. Some were partially excised with the cold biopsy forceps. Pylorus appeared to be of normal contour and shape, was intubated with ease, and the scope was advanced all the way to the 2nd portion of the duodenum. Biopsies were obtained from the proximal 2nd portion to rule out sprue considering patient's history of chronic diarrhea. Mucosa overlying the duodenal bulb appeared to be within normal limits. The scope was then withdrawn back into the stomach and retroflexed, and the mucosa overlying the fundus and the cardia appeared to be within normal limits. The scope was then straightened out. The stomach was decompressed. The scope was subsequently withdrawn. Patient tolerated procedure well. IMPRESSION: 1. Mild distal esophagitis. 2. Small sliding hiatal hernia. 3. Gastritis biopsied. Biopsies sent to stain for H. pylori. 4. Gastric polyps, body, hyperplastic-appearing. Some partially were excised with the cold biopsy forceps. 5. Ulcerated nodule, antrum, biopsied. 6. Rule out sprue. PLAN: Follow up histology. Continue current therapy. Job#: [id number] EV cc:OMID SINHA MD
[2017-09-12] MEDS: ALLOPURINOL 100 MG TAB PO SCH (15:22)
[2017-09-12] MEDS: COLESTIPOL HCL 1 G TAB PO SCH (15:22)
[2017-09-12] MEDS: METOPROLOL SUCCINATE 50 MG TAB XL PO SCH (15:22)
[2017-09-12] MEDS: ASPIRIN 81 MG CHEW TAB PO SCH (15:22)
[2017-09-12] MEDS: AMLODIPINE BESYLATE 10 MG TAB PO SCH (15:22)
[2017-09-12] MEDS ORDERED: LIDOCAINE HCL 2% LOCAL INJ 5 ML SDV VIAL INJ ONE (17:21)
[2017-09-12] MEDS ORDERED: PROPOFOL IV EMULSION 10 MG/ML 50 ML VIAL ONE (17:21)
--- NOTE | 2017-09-12 18:11 | Diagnostic Imaging Report ---
EXAM: Renal Ultrasound INDICATION: Indeterminate right upper pole renal lesion on recent CT examination. Ultrasound recommended for further characterization. COMPARISON: None . CT abdomen pelvis dated 09/10/2017. TECHNIQUE: Transverse and longitudinal images of the kidneys and bladder were obtained. FINDINGS: Right Kidney: Length: 8.3 cm, small. Appearance: Increased echogenicity. Collecting system: No hydronephrosis Stones: None Cyst/Mass: Anechoic lesion in the upper pole measures 0.9 x 0.5 x 0.7 cm. Left Kidney: Length: 7.2 cm, small. Appearance: Increased echogenicity. Collecting system: No hydronephrosis Stones: None Cyst/Mass: None Bladder: Normal IMPRESSION: 1. 0.9 cm simple cyst in the upper pole of the right kidney. 2. Increased echogenicity of the cortex bilaterally consistent with medical disease. No hydronephrosis. Signed by: Dr. Gama Mcmullen M.D. on 09/12/2017 6:08 PM
[2017-09-13] VITALS (8 sets, daily range): BP systolic 130–179; BP diastolic 60–72
[2017-09-13] MEDS: ACETAMINOPHEN 325 MG TAB PO PRN ×2 (01:34→13:22)
[2017-09-13] MEDS: METRONIDAZOLE 500MG/NS 100ML 100 ML IV SCH ×3 (05:32→17:00)
[2017-09-13 07:08] LABS: BASOPHILS % 0.5 % (0.0-1.0); EOSINOPHILS # (AUTO) 0.1 (0.0-0.4); EOSINOPHILS % 1.2 % (0.0-6.0); LYMPHOCYTES # (AUTO) 0.9 (1.0-3.2); MEAN CORPUSCULAR HGB CONC 31.4 g/dL (31-35); MEAN CORPUSCULAR VOLUME 108.5 fL (81-99); MONOCYTES # (AUTO) 0.5 (0.2-0.8); MONOCYTES % 7.8 % (4.4-11.3); NEUTROPHILS % 75.9 % (38.7-80.0); PLATELET COUNT 143 x10e3/uL (140-360); RED BLOOD COUNT 1.88 x10e6/uL (3.6-5.1); RED CELL DISTRIBUTION WIDTH 14.9 % (11.7-14.4)
[2017-09-13 07:13] LABS: HEMATOCRIT 20.4 % (34.2-44.1); HEMOGLOBIN 6.4 g/dL (12.0-16.0)
[2017-09-13] MEDS: SALMETEROL/FLUTICASONE 100/50 INH SCH ×2 (09:00→17:00)
--- NOTE | 2017-09-13 09:45 | Consultation ---
DATE OF CONSULTATION: September 06, 2017 Ms. Valdivia is an 87-year-old white female who was referred to me for evaluation of a lung mass. The patient had presented with extreme weakness. SOCIAL HISTORY: History of smoking. FAMILY HISTORY: Noncontributory. ALLERGIES: REPORTED NONE. MEDICATIONS: At this time: 1. Zosyn. 2. Sodium chloride. 3. Allopurinol. 4. Amlodipine. 5. Aspirin. 6. Cholestyramine. 7. Dicyclomine. 8. Gabapentin. 9. Loratadine. 10. Doxycycline. REVIEW OF SYSTEMS HEENT: Normal. CARDIAC: History of hypertension. RESPIRATORY: Right hilar mass at this time. GI: Normal. : Chronic renal failure. MUSCULOSKELETAL: Normal. SKIN AND BREASTS: Normal. NEUROENDOCRINE: Normal. PHYSICAL EXAMINATION GENERAL: A rather thin-built female. No adenopathy. Very anemic. No palpable adenopathy. HEART: Within normal limits. LUNGS: Showing a few crepitations. ABDOMEN: Soft. RECTAL: Vaginal exam deferred. CENTRAL NERVOUS SYSTEM: Could not be examined. LABS: Shows a hemoglobin of 8.7, hematocrit 27.2, white count 5300, and platelets 127,000. BUN 77, creatinine 9.5, sodium 136, potassium 4.1, chloride 100, CO2 22, bilirubin 0.7, SGOT 13, SGPT 6, alkaline phosphatase 71. CT scan of the chest shows right hilar mass. This mass is encasing the pulmonary artery and pulmonary vein. This is more than 3 cm. There are mediastinal lymph nodes, 1.7 cm. Subcarinal lymph node, 1.7 cm. There are sclerotic lesions in the bone. IMPRESSION 1. Right hilar mass. 2. Mediastinal adenopathy. 3. Sclerotic bones. 4. Anemia of chronic disease. 5. Chronic renal failure. 6. Hypertension. PLAN, COMMENTS AND SUGGESTIONS: This is inoperable lung cancer until proven otherwise. There is no need to prove it since this is inoperable, stage III. Even if we prove it, no treatment will be provided at least by this medical oncologist as the performance status is very poor. I have had multiple discussions with the patient's family, and eventually the 2 daughter's today. I have suggested Hospice. They have agreed to Hospice. Thank you very much for allowing me to participate in the management of this patient. Job#: [id number] RI cc:MD OMID SINHA MD
[2017-09-13] MEDS: CEFEPIME HCL 1 GM VIAL IV SCH (10:21)
[2017-09-13] MEDS: ASPIRIN 81 MG CHEW TAB PO SCH (10:21)
[2017-09-13] MEDS: DICYCLOMINE HCL 10 MG CAP PO SCH ×3 (10:21→20:18)
[2017-09-13] MEDS: CHOLESTYRAMINE 4 GM PACKET PO SCH ×3 (10:21→20:19)
[2017-09-13] MEDS: ALLOPURINOL 100 MG TAB PO SCH (10:21)
[2017-09-13] MEDS: SODIUM BICARBONATE 650 MG TAB PO SCH ×2 (10:21→16:22)
[2017-09-13] MEDS: GABAPENTIN 300 MG CAP PO SCH ×2 (10:21→16:22)
[2017-09-13] MEDS: COLESTIPOL HCL 1 G TAB PO SCH (10:21)
[2017-09-13] MEDS: METOPROLOL SUCCINATE 50 MG TAB XL PO SCH (10:22)
[2017-09-13] MEDS: AMLODIPINE BESYLATE 10 MG TAB PO SCH (10:22)
[2017-09-13] MEDS ORDERED: ALLOPURINOL100 MG PO (20:22)
[2017-09-13] MEDS ORDERED: AMLODIPINE BESY10 MG PO (20:23)
[2017-09-13] MEDS ORDERED: ASPIRIN CHEW81 MG PO (20:23)
[2017-09-13] MEDS ORDERED: QUESTRAN PACKET4 GM PO (20:24)
[2017-09-13] MEDS ORDERED: DICYCLOMINE HCL10 MG (20:25)
[2017-09-13] MEDS ORDERED: COLESTIPOL HCL1 GM PO (20:25)
[2017-09-13] MEDS ORDERED: ADVAIR 100-501 EACH (20:28)
[2017-09-13] MEDS ORDERED: GABAPENTIN300 MG PO (20:32)
[2017-09-13] MEDS ORDERED: FUROSEMIDE40 MG PO ×2 (20:32→20:42)
[2017-09-13] MEDS ORDERED: IPRATROPIUM BRO15 ML IH (20:33)
[2017-09-13] MEDS ORDERED: LORATADINE10 MG PO (20:43)
[2017-09-13] MEDS ORDERED: TRIAMCINOLONE A15 G1 (20:44)
[2017-09-13] MEDS ORDERED: TRIAMCINOLONE A15 G4 TP (20:44)
[2017-09-13] MEDS ORDERED: SODIUM BICARBO650 MG PO (20:47)
[2017-09-14 00:10] VITALS: BP 164/68
[2017-09-14] MEDS: METRONIDAZOLE 500MG/NS 100ML 100 ML IV SCH ×3 (00:10→11:45)
[2017-09-14 04:20] VITALS: BP 154/62
[2017-09-14] MEDS: SALMETEROL/FLUTICASONE 100/50 INH SCH (07:32)
[2017-09-14 07:44] VITALS: BP 147/66
--- NOTE | 2017-09-14 08:02 | Discharge Summary ---
The patient came to [facility] with change in mental status. She was found to have a mass in her chest, questionable pneumonia. The patient was started on empiric antibiotics because of fever. She was continued on dialysis. Dr. Whitmore, hematology/oncology, saw the patient. She had a mass in the mediastinal area. I spoke to Dr. Whitmore, client service executive, the prognosis is extremely poor. He recommended the patient discharge to comfort care only and there is no need for biopsy due to the very poor prognosis on this patient. The patient opted for Hospice. The patient is going home tomorrow with Hospice. PHYSICAL EXAMINATION HEART: Shows regular rhythm. Normal S1 and S2 sounds. LUNGS: Clear bilaterally. ABDOMEN: Soft. EXTREMITIES: Shows no evidence of cyanosis or trauma. FINAL IMPRESSION 1. Tumor in the mediastinal area, questionable pneumonia. 2. Hypertension with hypertensive nephropathy. 3. Chronic diarrhea. 4. End-stage renal disease, on dialysis. Patient refused to start dialysis. She refused blood transfusion also. She was comfort care only. Hospice has been arranged for the patient to be comfortable at home. She wants to go home. She does not want to stay in the hospital any longer. Prognosis has been explained to the patient and the family, who understand the poor prognosis due to the tumor in the mediastinal area. The patient has opted for Hospice. She is refusing dialysis, blood transfusion and any type of invasive intervention. She was only comfort care only. No active medications. OMID SINHA MD Job#: [id number] [place]
[2017-09-14] MEDS: DICYCLOMINE HCL 10 MG CAP PO SCH (08:15)
[2017-09-14] MEDS: AMLODIPINE BESYLATE 10 MG TAB PO SCH (08:15)
[2017-09-14] MEDS: CEFEPIME HCL 1 GM VIAL IV SCH (08:15)
[2017-09-14] MEDS: SODIUM BICARBONATE 650 MG TAB PO SCH (08:15)
[2017-09-14] MEDS: ASPIRIN 81 MG CHEW TAB PO SCH (08:15)
[2017-09-14] MEDS: METOPROLOL SUCCINATE 50 MG TAB XL PO SCH (08:15)
[2017-09-14] MEDS: COLESTIPOL HCL 1 G TAB PO SCH (08:15)
[2017-09-14] MEDS: CHOLESTYRAMINE 4 GM PACKET PO SCH (08:15)
[2017-09-14] MEDS: ALLOPURINOL 100 MG TAB PO SCH (08:15)
[2017-09-14] MEDS: GABAPENTIN 300 MG CAP PO SCH (08:15)
[2017-09-14 11:48] VITALS: BP 141/65
--- NOTE | 2017-09-14 14:52 | Consultation ---
DATE OF CONSULTATION: September 13, 2017 UROLOGY CONSULTATION CONSULTATION CALLED BY: Dr. Medina. CHIEF UROLOGIC COMPLAINT AND CONSULTATION: Renal mass. HISTORY OF PRESENT ILLNESS: Ms. Valdivia is an 87-year-old female admitted to the hospital with fevers and chills, found to have a right-sided lung mass. Urologic consultation was requested for a renal mass found on CT scan. PAST MEDICAL HISTORY: Dementia, seizures, hypertension, end-stage renal disease on hemodialysis, hyperparathyroidism. A CT scan revealing a renal mass. Renal ultrasound revealing this is a right upper pole renal cyst. Bone scan showing DJD. MEDICATIONS: Please see MAR. ALLERGIES: NKDA. SOCIAL HISTORY: Nonsmoker, nondrinker. FAMILY HISTORY: Denied urologic stones or malignancies. REVIEW OF SYSTEMS: Noncontributory other than problems mentioned above. PHYSICAL EXAMINATION GENERAL: Elderly female in no acute distress. VITALS: Temperature 98.6, pulse 58, respirations 15, blood pressure 142/60. HEENT: Sclerae anicteric. NECK: Supple. BACK: Without costovertebral tenderness bilaterally. ABDOMEN: Soft. It is nontender. It is nondistended. No palpable masses, no palpable hernias, no palpable inguinal lymphadenopathy. : Normal female external genitalia. EXTREMITIES: No edema. NEUROLOGIC: Moves extremities. PSYCHIATRIC: Alert. Mood appropriate. SKIN: Intact. Normal color. PERTINENT LABORATORY DATA: Renal ultrasound showed revealing a renal cyst/renal mass. Hemoglobin 6, hematocrit 20, platelet count 143,000, white cell count of 6500. Sodium 137, potassium 3.9, chloride 100, bicarb 32, BUN of 53, creatinine 6.99, glucose 90. Urinalysis: 2+ protein, 1+ bilirubin. IMPRESSION 1. Renal mass/renal cyst. 2. Hypertension. 3. End-stage renal disease. 4. Anemia. 5. Proteinuria. PLAN 1. The patient will need surveillance for the renal cyst and mass. Defer dialysis to the shrimp trawler. Proteinuria is not symptomatic at this time. 2. Hypertension. Would continue blood pressure medicines. Thank you for allowing us to participate in the care of your patient. We will be happy to follow along with you. Job#: [id number] EV
[2017-09-14 16:01] VITALS: BP 166/77
[2017-09-14 16:03] VITALS: BP 117/56
--- NOTE | 2017-09-14 17:58 | Discharge Summary ---
HISTORY OF PRESENT ILLNESS: An 87-year-old female with past medical history positive for end-stage renal disease on dialysis, hypertension. Patient came to the hospital with change in mental status. She was found to have fever. She was found to have possible pneumonia and a right hilar mass. Patient was seen by Dr. Ez Whitmore, hemato-oncologist, who recommended no further workup for the mass because if it is malignant tumor it is pretty advanced and even chemotherapy or radiation would not improve the survival. Patient was started empirically on IV antibiotic because of the fever, also. Blood cultures are negative. Family decided to make her hospice and do comfort care only. Patient is going home today under hospice due to the poor prognosis. PHYSICAL EXAM: HEART: Shows regular rhythm, normal S1 and S2 sounds. LUNGS: Clear bilaterally. ABDOMEN: Soft. FINAL IMPRESSIONS: 1. Right hilar mass, most likely malignant. 1. Pneumonia. 2. End-stage renal disease on dialysis. 3. Anemia of chronic disease secondary to end-stage renal disease. 4. Hypertension with hypertensive nephropathy. PLAN OF TREATMENT: The patient will continue with comfort care and the hospice. Patient is going home today. OMID SINHA MD Job#: [id number] EV
== END 2017-09-14 16:49 | disposition hospice, home (50) | DRG 180 ==
LOC: ER 14:06 → ERHOLD 23:45 → MED/SURG3 09-06 01:40
PROVIDERS: ADMIT Internal Medicine; ATTEND Internal Medicine
PROC: 5A1D70Z Performance of Urinary Filtration, Intermittent, Less than 6 Hours Per Day (ICD-10-PCS; 2017-09-06)
PROC: 0DB68ZX Excision of Stomach, Via Natural or Artificial Opening Endoscopic, Diagnostic (ICD-10-PCS; principal; 2017-09-12 13:29)
DX: C34.01 Malignant neoplasm of right main bronchus (principal); N18.6 End stage renal disease; G93.41 Metabolic encephalopathy; J18.9 Pneumonia, unspecified organism; I12.0 Hypertensive chronic kidney disease with stage 5 chronic kidney disease or end stage renal disease; K90.1 Tropical sprue; E86.0 Dehydration; G62.9 Polyneuropathy, unspecified; D63.1 Anemia in chronic kidney disease; R53.1 Weakness; N18.9 Chronic kidney disease, unspecified; R55 Syncope and collapse; Z99.2 Dependence on renal dialysis; R91.8 Other nonspecific abnormal finding of lung field; N28.1 Cyst of kidney, acquired; R80.9 Proteinuria, unspecified; R59.0 Localized enlarged lymph nodes; G40.909 Epilepsy, unspecified, not intractable, without status epilepticus; K21.0 Gastro-esophageal reflux disease with esophagitis; K44.9 Diaphragmatic hernia without obstruction or gangrene; K29.70 Gastritis, unspecified, without bleeding; K31.7 Polyp of stomach and duodenum; R19.7 Diarrhea, unspecified
CPT/HCPCS: 36415; 43239; 70450; 71046; 71260; 74176; 76770; 78306; 80053; 81001; 82270; 82378; 82607; 82728; 82746; 83540; 83605; 83735; 84100; 84132; 84443; 84466; 85025; 86704; 86790; 86850; 86900; 86920; 87040; 87086; 87350; 87493; 88305; 88312; 90962; 93005; 94640; 99284; A9503; J0692; J2001; J2543; J3370; J7030; J7040; Q9967